=== PATIENT | female | born 1975 | race Caucasian/White ===

== ENCOUNTER 2017-05-24 16:28 | Emergency (ER) | payer OTHER ==
[~2017-05-24] VITALS: Ht 165.1 cm; Wt 108.9 kg
[~2017-05-24 16:28] MED LIST: ACET325 PO; ALBIPROI INH; AMOX500 PO; AZIT250 PO; BUPR75; GUAPSEER PO; HYDACE5 PO; HYDGUAL120 PO; NAPR550 PO; PRED20 PO; PRENZ PO; PROM25 PO; RXOXYACE PO
[2017-05-24 17:27] LABS: BASOPHILS ABSOLUTE AUTO 0.06 K/mm3 (0.00-0.23); BASOPHILS PERCENT AUTO 1 % (0-2); EOSINOPHILS ABSOLUTE AUTO 0.27 K/mm3 (0.00-0.68); EOSINOPHILS PERCENT AUTO 3 % (0-6); Hematocrit 38.4 % (33.0-51.0); Hemoglobin 12.1 g/dL (11.5-16.0); IMMATURE GRAN ABSOLUTE AUTO 0.03 K/mm3 (0.00-0.10); IMMATURE GRAN PERCENT AUTO 0 % (0-1); LYMPHOCYTES ABSOLUTE AUTO 2.15 K/mm3 (0.84-5.20); LYMPHOCYTES PERCENT AUTO 24 % (21-46); MONOCYTES ABSOLUTE AUTO 0.81 K/mm3 (0.16-1.47); MONOCYTES PERCENT AUTO 9 % (4-13); Mean Corpuscular HGB 24.6 pg (26.0-34.0); Mean Corpuscular HGB Conc 31.5 g/dL (31.5-36.5); Mean Corpuscular Volume 78 fL (80-100); Mean Platelet Volume 11.9 fL (9.1-12.4); NEUTROPHILS ABSOLUTE AUTO 5.71 K/mm3 (1.96-9.15); NEUTROPHILS PERCENT AUTO 63 % (41-73); Platelet Count 204 K/mm3 (150-400); RDW Coefficient Variation 15.6 % (11.7-14.2); RDW Standard Deviation 43.7 fL (35.1-46.3); Red Blood Cell Count 4.92 M/mm3 (3.80-5.20); White Blood Cell Count 9.03 K/mm3 (4.00-11.30)
[2017-05-24 17:43] LABS: Alanine Aminotransfer (ALT/SGP 13 U/L (12-78); Albumin, Blood 3.7 g/dL (3.4-5.0); Albumin/Globulin Ratio 0.9 (0.8-1.8); Alk Phos 80 U/L (50-136); Anion Gap 12 mmol/L (6-16); Aspartate Aminotrans (AST/SGOT 12 U/L (12-37); Bilirubin, Total 0.2 mg/dL (0.1-1.0); Blood Urea Nitrogen 10 mg/dL (8-24); Bun/Creatinine Ratio 11.6 (12.0-20.0); CO2, Blood 19 mmol/L (21-32); Calcium, Blood 8.6 mg/dL (8.5-10.1); Chloride, Blood 108 mmol/L (98-108); Creatinine, Blood 0.86 mg/dL (0.40-1.00); Globulin, Blood 4.2 g/dL (2.2-4.0); Glomerular Filtration Rate >60 (60-); Glucose, Blood 122 mg/dL (70-99); Potassium, Blood 3.4 mmol/L (3.5-5.5); Sodium, Blood 139 mmol/L (136-145); Total Protein, Blood 7.9 g/dL (6.4-8.2); Troponin I <0.015 ng/mL (0.000-0.040)
[2017-05-24] MEDS ORDERED: Duoneb 2.5-0.5 M3 ML INH (20:35)
[2017-05-24] MEDS ORDERED: CLARITIN5 MG PO (20:35)
[2017-05-24] MEDS ORDERED: Prednisone20 MG PO (20:35)
[2017-05-24] MEDS ORDERED: Zithromax250 MG PO (20:35)
== END 2017-05-24 20:53 | disposition home or self-care (01) ==
LOC: ER 16:28
PROVIDERS: Emergency Medicine
DX: J40 Bronchitis, not specified as acute or chronic (principal); J98.01 Acute bronchospasm
CPT/HCPCS: 36415; 71046; 80053; 83880; 84484; 85025; 93005; 93010; 94640; 96361; 96374; 99284; J2930; J7030

== ENCOUNTER 2023-07-18 14:26 | Inpatient (IN) | payer OTHER ==
[~2023-07-18] VITALS: Ht 157.5 cm; Wt 89.1 kg
[2023-07-18] MEDS ORDERED: NS 1,000 ML IV SCH ×2 (16:20→23:15)
[2023-07-18 16:43] LABS: Source, Urine Clean Catch
[2023-07-18 17:01] LABS: Appearance, Urine Hazy (Clear); Bilirubin, Urine Neg (Neg); Blood, Urine 3+ (Neg); Color, Urine Yellow (P-Yellow); Glucose Qualitative, Urine Neg (Neg); Ketones, Urine 2+ (Neg); Leukocyte Esterase, Urine 3+ (Neg); Nitrite, Urine Neg (Neg); Protein, Urine 2+ (Neg); Urobilinogen, Urine 1+ (Normal)
[2023-07-18 17:08] LABS: International Normalized Ratio 1.1; Prothrombin Time Results 11.7 Sec (9.7-11.5)
[2023-07-18 17:29] LABS: White Blood Cells, Urine TNTC /hpf (0-5)
[2023-07-18 17:30] LABS: Bacteria Many /hpf; Squamous Epithelial Cells Few /hpf (Few)
[2023-07-18] MEDS ORDERED: Sod Ferric Gluc Complx/Sucrose 125 MG in NS 100 ML IV ONE (17:55)
[2023-07-18] MEDS ORDERED: CefTRIAXone Sodium 1,000 MG in NS 50 ML IV ONE (18:05)
[2023-07-18] MEDS ORDERED: FentaNYL Citrate 50 MCG/ML 2 ML Injection IV PRN (22:45)
[2023-07-18] MEDS ORDERED: Acetaminophen 325 MG TABLET PO PRN (22:45)
[2023-07-18] MEDS ORDERED: Ondansetron HCl 2 MG / ML 2ML Vial IV PRN (22:50)
[2023-07-18] MEDS ORDERED: Albumin (Human) 25gm/100ml 100 ML IV ONE (22:55)
[2023-07-19] MEDS ORDERED: Piperacillin/Tazobactam Sod 4.5 GM in NS 100 ML IV SCH
[2023-07-19 00:30] VITALS: BP 122/60
[2023-07-19] MEDS ORDERED: NS 250 ML IV PRN (00:30)
[2023-07-19 00:46] LABS: RETIC HGB EQUIVALENT 16.9 pg (28.20-36.60); RETICULOCYTE ABSOLUTE 0.0444 M/mm3 (0.0200-0.1100); RETICULOCYTE COUNT PERCENT 1.25 % (0.50-2.50)
[2023-07-19 00:54] LABS: BASOPHILS ABSOLUTE AUTO 0.05 K/mm3 (0.00-0.23); BASOPHILS PERCENT AUTO 0 % (0-2); EOSINOPHILS ABSOLUTE AUTO 0.11 K/mm3 (0.00-0.68); EOSINOPHILS PERCENT AUTO 1 % (0-6); Hematocrit 21.7 % (33.0-51.0); Hemoglobin 6.1 g/dL (11.5-16.0); IMMATURE GRAN ABSOLUTE AUTO 0.09 K/mm3 (0.00-0.10); IMMATURE GRAN PERCENT AUTO 1 % (0-1); LYMPHOCYTES ABSOLUTE AUTO 1.74 K/mm3 (0.84-5.20); LYMPHOCYTES PERCENT AUTO 14 % (21-46); MONOCYTES ABSOLUTE AUTO 1.31 K/mm3 (0.16-1.47); MONOCYTES PERCENT AUTO 10 % (4-13); Mean Corpuscular HGB 16.9 pg (26.0-34.0); Mean Corpuscular HGB Conc 28.1 g/dL (31.5-36.5); Mean Corpuscular Volume 60 fL (80-100); Mean Platelet Volume 9.8 fL (9.1-12.4); NEUTROPHILS ABSOLUTE AUTO 9.29 K/mm3 (1.96-9.15); NEUTROPHILS PERCENT AUTO 74 % (41-73); NRBC ABSOLUTE 0.02 K/mm3 (0.00-0.02); NRBC Auto 0.2 /100 WBC (0.0-0.2); Platelet Count 554 K/mm3 (150-400); RDW Coefficient Variation 18.7 % (11.7-14.2); RDW Standard Deviation 39.8 fL (35.1-46.3); White Blood Cell Count 12.59 K/mm3 (4.00-11.30)
[2023-07-19 01:07] LABS: Albumin, Blood 2.6 g/dL (3.4-5.0); Albumin/Globulin Ratio 0.6 (0.8-1.8); Bilirubin, Total 0.4 mg/dL (0.1-1.0); Bun/Creatinine Ratio 9.4 (12.0-20.0); Calcium, Blood 8.7 mg/dL (8.5-10.1); Creatinine, Blood 0.85 mg/dL (0.40-1.00); Globulin, Blood 4.3 g/dL (2.2-4.0); Potassium, Blood 4.2 mmol/L (3.5-5.5); Total Protein, Blood 6.9 g/dL (6.4-8.2)
--- NOTE | 2023-07-19 05:18 | NUR ---
SHIFT SUMMARY 48 YR F ADMITTED THIS SHIFT FOR PERINEPHRIC ABCESS/UTI. SHE IS CURRENTLY LISTED FULL CODE BUT WISHED TO CHANGE HER CODE STATUS TO DNR. HOSPITALIST WILL BE NOTIFIED. NO ACUTE CHANGES THIS SHIFT. PT C/O RIGHT FLANK PAIN AND HAS BEEN RESTLESS SINCE HER ARRIVAL TO THIS FLOOR. SHE DOES NOT APPEAR TO HAVE SLEPT SINCE ARRIVING. SHE IS A&O X 4 AND INDEPENDANT IN THE ROOM.
[2023-07-19] MEDS ORDERED: LORazepam 0.5 MG Tab PO ONE (05:50)
[2023-07-19 07:42] VITALS: BP 117/65
[2023-07-19] MEDS ORDERED: HYDROcodone 5-APAP 325 TAB PO PRN (08:00)
[2023-07-19] MEDS ORDERED: Ferrous Sulfate 325 MG Tab PO SCH (09:00)
--- NOTE | 2023-07-19 18:10 | NUR ---
SHIFT SUMMARY PATIENT IS ALERT AND ORIENTED TIME 3. PERIPHRENIC ABSCESS TX ZOSYN AND VANYCOMYOCIN. WE EXPLAINED THE LOW HBG AND HEMOCRITE AND SHE STATED SHE DID NOT WANT BLOOD TRANSFUSION. STATED FOR RELGIOUS PURPOSE SHE WAS REFUSING THE BLOOD TRANSFUSION. VSS STABLE. TRANSFERRED PATIENT TO [facility]. PATIENT STATED SHE WANTED TO BE LISTED DNR BUT CHANGED HER MIND AND WANTED TO BE LISTED FULL CODE. PATIENT REPORTED NO PAIN DURING SHIFT. PATIENT TX ANTIBOTICS. CARDIAC STRONG, PEDAL PULSE 3+ , RADIAL PULSE NOTED, CAPILLARY REFILL LESS THAN 3, LUNG SOUNDS CLEAR
--- NOTE | 2023-07-19 18:37 | NUR ---
VERIFIED IV PLACEMENT AND NO SIGNS OF INFECTION OR REDNESS NOTED. FLUSHED EASILY.
[2023-07-19 19:15] VITALS: BP 117/65
--- NOTE | 2023-07-19 19:26 | NUR ---
report called to Alicia cheney at [facility] for cobra transfer.
[2023-07-19 19:48] VITALS: BP 128/68
[2023-07-19 19:53] VITALS: BP 117/65
[2023-07-19] MEDS ORDERED: Vancomycin HCL 1,500 MG in NS 250 ML IV SCH (21:00)
[2023-07-20 08:10] LABS: FERRITIN 86 ng/mL (15-150); IRON BIND.CAP.(TIBC) 243 ug/dL (250-450); IRON SATURATION 47 % (15-55); IRON, SERUM 113 ug/dL (27-159); UIBC 130 ug/dL (131-425)
== END 2023-07-19 20:50 | disposition short-term general hospital (02) | DRG 871 ==
LOC: ER 14:26 → MEDS 22:44
PROVIDERS: Nurse Practitioner; Student in an Organized Health Care Education/Training Program; ADMIT Internal Medicine
DX: A41.9 Sepsis, unspecified organism (principal); N15.1 Renal and perinephric abscess; N13.6 Pyonephrosis; N12 Tubulo-interstitial nephritis, not specified as acute or chronic; D50.9 Iron deficiency anemia, unspecified; K42.9 Umbilical hernia without obstruction or gangrene; Z79.899 Other long term (current) drug therapy; Z79.51 Long term (current) use of inhaled steroids; Z79.2 Long term (current) use of antibiotics; R10.9 Unspecified abdominal pain; K80.20 Calculus of gallbladder without cholecystitis without obstruction; N20.0 Calculus of kidney; D75.839 Thrombocytosis, unspecified
CPT/HCPCS: 36415; 74176; 74177; 80053; 81001; 82272; 82728; 83540; 83550; 83690; 83880; 85025; 85045; 85060; 85610; 86850; 86900; 86901; 86923; 87040; 87077; 87086; 87186; 93005; 93010; 96361; 96374-59; 96375; 99285-25; A9270; J0696; J2543; J2916; J3010; J3370; J7030; J7050; P9047; Q9967

== ENCOUNTER → 2023-07-18 | Outpatient (CLI) | payer OTHER ==
[~2023-07-18] MED LIST changes: +CLARITIN5 MG PO; +Duoneb 2.5-0.5 M3 ML INH; +Prednisone20 MG PO; +Zithromax250 MG PO
[2023-07-18 13:25] LABS: BASOPHILS ABSOLUTE AUTO 0.03 K/mm3 (0.00-0.23); BASOPHILS PERCENT AUTO 0 % (0-2); EOSINOPHILS ABSOLUTE AUTO 0.14 K/mm3 (0.00-0.68); EOSINOPHILS PERCENT AUTO 1 % (0-6); Hematocrit 23.2 % (33.0-51.0); Hemoglobin 6.6 g/dL (11.5-16.0); IMMATURE GRAN ABSOLUTE AUTO 0.09 K/mm3 (0.00-0.10); IMMATURE GRAN PERCENT AUTO 1 % (0-1); LYMPHOCYTES ABSOLUTE AUTO 1.48 K/mm3 (0.84-5.20); LYMPHOCYTES PERCENT AUTO 15 % (21-46); MONOCYTES ABSOLUTE AUTO 0.84 K/mm3 (0.16-1.47); MONOCYTES PERCENT AUTO 9 % (4-13); Mean Corpuscular HGB 17.5 pg (26.0-34.0); Mean Corpuscular HGB Conc 28.4 g/dL (31.5-36.5); Mean Corpuscular Volume 61 fL (80-100); Mean Platelet Volume 9.7 fL (9.1-12.4); NEUTROPHILS PERCENT AUTO 74 % (41-73); NRBC ABSOLUTE 0.02 K/mm3 (0.00-0.02); NRBC Auto 0.2 /100 WBC (0.0-0.2); Platelet Count 546 K/mm3 (150-400); RDW Coefficient Variation 18.6 % (11.7-14.2); RDW Standard Deviation 40.2 fL (35.1-46.3); Red Blood Cell Count 3.78 M/mm3 (3.80-5.20); White Blood Cell Count 9.88 K/mm3 (4.00-11.30)
[2023-07-18 13:37] LABS: Albumin, Blood 2.6 g/dL (3.4-5.0); Albumin/Globulin Ratio 0.5 (0.8-1.8); Bilirubin, Total 0.6 mg/dL (0.1-1.0); Bun/Creatinine Ratio 8.7 (12.0-20.0); Calcium, Blood 8.8 mg/dL (8.5-10.1); Creatinine, Blood 1.03 mg/dL (0.40-1.00); Globulin, Blood 4.9 g/dL (2.2-4.0); Total Protein, Blood 7.5 g/dL (6.4-8.2)
[2023-07-19 08:12] LABS: FERRITIN 95 ng/mL (15-150)
[2023-07-19 09:12] LABS: IRON BIND.CAP.(TIBC) 260 ug/dL (250-450); IRON SATURATION 4 % (15-55); IRON, SERUM 10 ug/dL (27-159); UIBC 250 ug/dL (131-425)
== END | disposition home or self-care (01) ==
LOC: LAB SHORT 13:19
PROVIDERS: Chiropractor
DX: D50.9 Iron deficiency anemia, unspecified (principal); D75.839 Thrombocytosis, unspecified; N12 Tubulo-interstitial nephritis, not specified as acute or chronic; R10.9 Unspecified abdominal pain
CPT/HCPCS: 80053; 82728; 83540; 83550; 83690; 85025; 85060; 87086

== ENCOUNTER 2023-09-15 22:43 | Emergency (ER) | payer OTHER ==
[~2023-09-15] VITALS: Ht 157.5 cm; Wt 88.9 kg
[2023-09-15] MEDS ORDERED: Ondansetron HCl 2 MG / ML 2ML Vial IV PRN (23:45)
[2023-09-16 00:09] LABS: BASOPHILS ABSOLUTE AUTO 0.05 K/mm3 (0.00-0.23); BASOPHILS PERCENT AUTO 1 % (0-2); EOSINOPHILS ABSOLUTE AUTO 0.08 K/mm3 (0.00-0.68); EOSINOPHILS PERCENT AUTO 1 % (0-6); Hematocrit 37.7 % (33.0-51.0); Hemoglobin 11.7 g/dL (11.5-16.0); IMMATURE GRAN ABSOLUTE AUTO 0.03 K/mm3 (0.00-0.10); IMMATURE GRAN PERCENT AUTO 0 % (0-1); LYMPHOCYTES ABSOLUTE AUTO 1.18 K/mm3 (0.84-5.20); LYMPHOCYTES PERCENT AUTO 11 % (21-46); MONOCYTES ABSOLUTE AUTO 0.42 K/mm3 (0.16-1.47); MONOCYTES PERCENT AUTO 4 % (4-13); Mean Corpuscular HGB 24.1 pg (26.0-34.0); Mean Corpuscular Volume 78 fL (80-100); NEUTROPHILS ABSOLUTE AUTO 9.15 K/mm3 (1.96-9.15); NEUTROPHILS PERCENT AUTO 84 % (41-73); Platelet Count 265 K/mm3 (150-400); RDW Coefficient Variation 21.6 % (11.7-14.2); RDW Standard Deviation 62.1 fL (35.1-46.3); Red Blood Cell Count 4.86 M/mm3 (3.80-5.20); White Blood Cell Count 10.91 K/mm3 (4.00-11.30)
[2023-09-16 00:14] LABS: Mean Platelet Volume 10.6 fL (9.1-12.4)
[2023-09-16 00:29] LABS: Albumin, Blood 3.9 g/dL (3.4-5.0); Bilirubin, Total 0.3 mg/dL (0.1-1.0); Bun/Creatinine Ratio 22.4 (12.0-20.0); Calcium, Blood 9.7 mg/dL (8.5-10.1); Creatinine, Blood 0.94 mg/dL (0.40-1.00); Globulin, Blood 4.1 g/dL (2.2-4.0); Potassium, Blood 3.7 mmol/L (3.5-5.5)
[2023-09-16] MEDS ORDERED: SULFAMETHOXAZO1 EACH PO (01:25)
[2023-09-16] MEDS ORDERED: Ketorolac Tromethamine 30mg Vial IV ONE (02:45)
[2023-09-16] MEDS ORDERED: Droperidol 5 mg/2 ml Vial IV ONE (02:45)
[2023-09-16] MEDS ORDERED: Lactated Ringer's 1,000 ML IV ONE (02:45)
[2023-09-16 03:38] LABS: Source, Urine Clean Catch
[2023-09-16 03:40] LABS: Bilirubin, Urine Neg (Neg); Blood, Urine Neg (Neg); Glucose Qualitative, Urine Neg (Neg); Ketones, Urine 1+ (Neg); Leukocyte Esterase, Urine Neg (Neg); Nitrite, Urine Neg (Neg); Protein, Urine Neg (Neg); Specific Gravity, Urine 1.015 (1.003-1.022); Urobilinogen, Urine NORM (Normal)
[2023-09-16 03:56] LABS: Appearance, Urine Clear (Clear); Color, Urine Yellow (P-Yellow)
[2023-09-16 04:01] LABS: Ethanol (Alcohol), Blood, Med <3 mg/dL; Magnesium, Blood 1.8 mg/dL (1.6-2.4)
[2023-09-16 04:03] LABS: International Normalized Ratio 0.97; Prothrombin Time Results 10.4 Sec (9.7-11.5)
[2023-09-16 06:00] VITALS: BP 119/102
== END 2023-09-16 06:15 | disposition left against medical advice (07) ==
LOC: ER 22:43
PROVIDERS: Emergency Medicine; Student in an Organized Health Care Education/Training Program
DX: R10.11 Right upper quadrant pain (principal)
CPT/HCPCS: 74177; 80053; 81003; 81025; 83605; 83690; 83735; 84145; 85025; 85610; 96361; 96374-59; 96375; 99284-25; J1790; J1885; J2405; J7120; Q9967

== ENCOUNTER → 2023-11-13 | Outpatient (CLI) | payer OTHER ==
[~2023-11-13] MED LIST changes: +SULFAMETHOXAZO1 EACH PO
[2023-11-27 14:47] LABS: HPV HIGH RISK BY TMA Not Detected; HPV SOURCE Cervical
== END ==
LOC: LAB SHORT 17:12 → LAB 17:12
PROVIDERS: Obstetrics & Gynecology
DX: Z01.419 Encounter for gynecological examination (general) (routine) without abnormal findings (principal)
CPT/HCPCS: 87624; G0123

== ENCOUNTER → 2023-11-13 | Outpatient (CLI) | payer OTHER | LOC: LAB 07:46 → LAB SHORT 07:46 | DX: N93.9 Abnormal uterine and vaginal bleeding, unspecified (principal) | CPT/HCPCS: 88305 ==